=== PATIENT | male | born 1940 | race Caucasian/White ===

== ENCOUNTER 2022-01-31 11:40 | Emergency (ER) | payer MEDICARE ==
[~2022-01-31] VITALS: Ht 172.7 cm; Wt 51.3 kg
--- NOTE | 2022-01-31 11:41 | NUR ---
Patient wheelchair assisted by [facility] to bed 2.
[2022-01-31 11:48] VITALS: BP 128/72
--- NOTE | 2022-01-31 11:57 | NUR ---
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 NOTED SKIN TEAR ON THE RIGHT UPPER ARM, BLEEDING CONTROLLED. PAIN 4/10. DOES NOT RECALL LAST TDAP SHOT, NKA PMH: DEMENTIA
[2022-01-31] MEDS ORDERED: NEOMYCIN/POLYMYXIN/BACITRACIN 0.9 GM/1 PKT TP ONE (12:15)
[2022-01-31] MEDS ORDERED: AMOX-1230 PO (12:17)
== END 2022-01-31 13:01 | disposition home or self-care (01) ==
LOC: MED 11:40
DX: S40.811A Abrasion of right upper arm, initial encounter (principal); W54.0XXA Bitten by dog, initial encounter; Y93.89 Activity, other specified; Y92.89 Other specified places as the place of occurrence of the external cause; Y99.8 Other external cause status
CPT/HCPCS: 99283